=== PATIENT | female | born 1985 | race Caucasian/White ===

== ENCOUNTER → 2017-11-17 | Emergency (ER) | payer OTHER ==
[~2017-11-17] VITALS: Ht 160 cm; Wt 59.0 kg
== END | disposition home or self-care (01) ==
LOC: ER 13:03
DX: S61.022A Laceration with foreign body of left thumb without damage to nail, initial encounter (principal); L03.012 Cellulitis of left finger; W26.8XXA Contact with other sharp object(s), not elsewhere classified, initial encounter; W45.8XXA Other foreign body or object entering through skin, initial encounter; Y93.89 Activity, other specified; Y92.89 Other specified places as the place of occurrence of the external cause; Y99.8 Other external cause status

== ENCOUNTER 2018-03-07 12:44 | Outpatient (CLI) | payer OTHER | END 2018-03-07 15:05 | disposition home or self-care (01) | LOC: RX STUDY 12:44 | DX: N97.0 Female infertility associated with anovulation (principal); N97.1 Female infertility of tubal origin ==